=== PATIENT | male | born 1985 | race American Indian/Alaskan Native ===

== ENCOUNTER 2021-01-22 20:27 | Emergency (ER) | payer BC ==
[2021-01-22] MEDS ORDERED: ACETAMINOPHEN 500 MG TAB PO NR (20:58)
[2021-01-22] MEDS ORDERED: SODIUM CHLORIDE 0.9% 1000 ML 1,000 ML IV ONE (20:58)
--- NOTE | 2021-01-22 21:28 | XRay Report ---
CHEST 2 VIEWS INDICATION / CLINICAL INFORMATION: Cough, fever, chills. COMPARISON: None available. FINDINGS: SUPPORT DEVICES: None. HEART / MEDIASTINUM: No significant abnormality. LUNGS / PLEURA: No significant pulmonary or pleural abnormality. No pneumothorax. ADDITIONAL FINDINGS: No significant additional findings. IMPRESSION: 1. No acute findings. Signer Name: Keyur Bourne DO Signed: 01/22/2021 9:24 PM Workstation Name: [id number]
[2021-01-22 21:39] LABS: Hematocrit 49.9 % (35.5-45.6); Hemoglobin 16.2 gm/dl (11.8-15.2); Mean Corpuscular HGB Conc 32 % (32-34); Mean Corpuscular Volume 86 fl (84-94); Platelet Count 187 K/mm3 (140-440); Red Blood Count 5.82 M/mm3 (3.65-5.03); Red Cell Distribution Width 13.6 % (13.2-15.2)
[2021-01-22 22:01] LABS: Alanine Aminotransferase 34 units/L (7-56); Albumin 4.6 g/dL (3.9-5); BUN/Creatinine Ratio 6; Blood Urea Nitrogen 8 mg/dL (9-20); Calcium 9.3 mg/dL (8.4-10.2); Hemolysis Index 13
--- NOTE | 2021-01-22 22:18 | Emergency Department Report ---
- General Chief Complaint: Fever Stated Complaint: NOT EATING Source: patient Mode of arrival: Ambulatory Limitations: No Limitations - History of Present Illness Initial Comments: Patient is a 35-year-old -[place] male with no past medical history who presents to the ED with complaint of acute onset persistent nasal and sinus congestion, diffuse body aches and pains, subjective fever and chills, persistent dry cough, lack of appetite, loss of sense of smell and taste, diarrhea and body aches and pains for the last 4 days. Patient states that other people at his workplace tested positive for COVID-19 viral infection. Patient however states that he has not been vaccinated against COVID-19 viral infection. Patient denies dizziness, syncope, chest pain, shortness of breath, nausea, vomiting, abdominal pain, sore throat, change in vision, testicular pain or hematuria and lightheadedness. MD Complaint: cough, rhinorrhea, nasal congestion, sinus pain, other (Diffuse body aches and pains, diarrhea and generalized weakness) -: Sudden, days(s) (4) Severity: moderate Severity scale (0 -10): 5 Quality: sharp, aching Consistency: constant Improves With: nothing Worsens With: nothing Context: sick contacts Associated Symptoms: fever, chills, myalgias, headache, rhinorrhea, nasal congestion, cough, diarrhea, other (Loss of taste and smell sensation). denies: stiff neck, chest pain, shortness of breath, abdominal pain, nausea, vomiting, dysuria, rash, confusion, weight loss, epistaxis, hoarseness Treatments Prior to Arrival: "cold medicine" - Related Data Previous Rx's Medication Instructions Recorded Last Taken Type Acetaminophen [Tylenol] 500 mg PO Q6HR PRN #30 tablet 01/22/21 Unknown Rx Ascorbic Acid [Vitamin C] 1,000 mg PO Q12H #30 tablet 01/22/21 Unknown Rx Benzonatate [Tessalon Perles] 100 mg PO Q8HR #30 capsule 01/22/21 Unknown Rx Cetirizine HCl [Zyrtec 10mg tab] 10 mg PO DAILY #30 tablet 01/22/21 Unknown Rx Allergies Allergy/AdvReac Type Severity Reaction Status Date / Time No Known Allergies Allergy Verified 01/22/21 21:58 ED Review of Systems ROS: Stated complaint: NOT EATING Other details as noted in HPI Constitutional: chills, fever, malaise Eyes: denies: eye pain, eye discharge, vision change ENT: congestion Respiratory: cough. denies: shortness of breath, SOB with exertion, SOB at rest, stridor, wheezing Cardiovascular: denies: chest pain, palpitations Endocrine: no symptoms reported Gastrointestinal: nausea, diarrhea Genitourinary: denies: urgency, dysuria, frequency, hematuria, discharge Musculoskeletal: arthralgia, myalgia. denies: as per HPI Skin: denies: rash, lesions Neurological: headache Psychiatric: denies: anxiety, depression Hematological/Lymphatic: denies: easy bleeding, easy bruising ED Past Medical Hx - Past Medical History Previous Medical History?: No - Surgical History Past Surgical History?: Yes Additional Surgical History: L arm - Medications Home Medications: Home Medications Medication Instructions Recorded Confirmed Last Taken Type Acetaminophen [Tylenol] 500 mg PO Q6HR PRN #30 tablet 01/22/21 Unknown Rx Ascorbic Acid [Vitamin C] 1,000 mg PO Q12H #30 tablet 01/22/21 Unknown Rx Benzonatate [Tessalon Perles] 100 mg PO Q8HR #30 capsule 01/22/21 Unknown Rx Cetirizine HCl [Zyrtec 10mg tab] 10 mg PO DAILY #30 tablet 01/22/21 Unknown Rx ED Physical Exam - General Limitations: No Limitations General appearance: alert, in no apparent distress - Head Head exam: Present: atraumatic, normocephalic, normal inspection - Eye Eye exam: Present: normal appearance, PERRL, EOMI Pupils: Present: normal accommodation - ENT ENT exam: Present: normal orophraynx, mucous membranes moist, TM's normal bilaterally, normal external ear exam, other (Grossly congested nasal passages) - Neck Neck exam: Present: normal inspection, full ROM - Respiratory Respiratory exam: Present: normal lung sounds bilaterally. Absent: respiratory distress, wheezes, rales, chest wall tenderness, accessory muscle use, decreased breath sounds - Cardiovascular Cardiovascular Exam: Present: regular rate, normal rhythm, normal heart sounds. Absent: systolic murmur, diastolic murmur, rubs, gallop - GI/Abdominal GI/Abdominal exam: Present: soft, normal bowel sounds. Absent: tenderness, guarding, rebound, hyperactive bowel sounds, hypoactive bowel sounds, organomegaly - Extremities Exam Extremities exam: Present: normal inspection, full ROM, normal capillary refill - Back Exam Back exam: Present: normal inspection, full ROM. Absent: tenderness, CVA tenderness (R), CVA tenderness (L), muscle spasm, paraspinal tenderness - Neurological Exam Neurological exam: Present: alert, oriented X3, CN II-XII intact, normal gait, reflexes normal - Psychiatric Psychiatric exam: Present: normal affect, normal mood - Skin Skin exam: Present: warm, dry, intact, normal color. Absent: rash ED Course Vital Signs 01/22/21 20:38 Temperature 99.7 F H Pulse Rate 63 Respiratory 22 Rate Blood Pressure 157/108 [Right] O2 Sat by Pulse 96 Oximetry ED Medical Decision Making - Lab Data Result diagrams: 01/22/21 21:27 01/22/21 21:27 - Radiology Data Radiology results: report reviewed, image reviewed [address] [address] XRay Report Signed Patient: KEENAN MORTENSEN MR#: [id number] : 1985 Acct:[id number] Age/Sex: 35 / M ADM Date: 01/22/21 Loc: ED Attending Dr: Ordering Physician: HEATHER BOTELLO Date of Service: 01/22/21 Procedure(s): XR chest routine 2V Accession Number(s): [id number] cc: HEATHER BOTELLO Fluoro Time In Minutes: CHEST 2 VIEWS INDICATION / CLINICAL INFORMATION: Cough, fever, chills. COMPARISON: None available. FINDINGS: SUPPORT DEVICES: None. HEART / MEDIASTINUM: No significant abnormality. LUNGS / PLEURA: No significant pulmonary or pleural abnormality. No pneumothorax. ADDITIONAL FINDINGS: No significant additional findings. IMPRESSION: 1. No acute findings. Signer Name: Keyur Bourne DO Signed: 01/22/2021 9:24 PM Workstation Name: [id number] Transcribed By: [place] Dictated By: KEYUR BOURNE DO Electronically Authenticated By: KEYUR BOURNE DO Signed Date/Time: 01/22/212123 DD/ 22 TD/TT: - Medical Decision Making This is a 35-year-old -[place] male with no past medical history who presents to the ED with complaint of acute onset persistent nasal and sinus congestion, diffuse body aches and pains, subjective fever and chills, persistent dry cough, lack of appetite, loss of sense of smell and taste, diarrhea and body aches and pains for the last 4 days. Patient states that other people at his workplace tested positive for COVID-19 viral infection. Patient however states that he has not been vaccinated against COVID-19 viral infection. In the ED, patient is alert and oriented x3 and is not in any distress. Patient treated for pain in the ED with Tylenol. Chest x-ray showed no acute cardiopulmonary abnormalities or pneumonitis. Lab test results were reviewed and are all nonactionable. Patient symptoms are likely viral in etiology any COVID-19 viral infection is high in the differential diagnosis. Patient was discharged home on medications and advised to obtain COVID-19 diagnostic test in the outpatient facilities and if positive to self quarantine at home for 10 days. Patient was otherwise advised to follow-up with his primary care physician in 7 to 10 days for reevaluation or return to the ED immediately if symptoms get worse. - Differential Diagnosis URI; Bronchitis; Pneumonia, Covid -19 Critical care attestation.: If time is entered above; I have spent that time in minutes in the direct care of this critically ill patient, excluding procedure time. ED Disposition Clinical Impression: Flu-like symptoms, Acute upper respiratory infection, Suspected severe acute respiratory syndrome coronavirus 2 (SARS-CoV-2) infection Disposition: 01 HOME / SELF CARE / HOMELESS Is pt being admited?: No Does the pt Need Aspirin: No Condition: Stable Instructions: Upper Respiratory Infection, Adult, [id number], Cough, Adult, [id number] Additional Instructions: All lab test results were reviewed and are all nonactionable. Chest x-ray shows no acute cardiopulmonary abnormalities or pneumonitis. Therefore your symptoms are still likely viral and COVID-19 is highly suspected. Therefore get a COVID-19 diagnosis test performed in any of the outside facilities and if positive self quarantine for 10 days while taking medications for pain and fever. Otherwise follow-up with your primary care physician in 7 to 10 days for reevaluation or return to the ED immediately if your symptoms get worse. Prescriptions: Acetaminophen [Tylenol] 500 mg PO Q6HR PRN #30 tablet PRN Reason: pain or fever Benzonatate [Tessalon Perles] 100 mg PO Q8HR #30 capsule Ascorbic Acid [Vitamin C] 1,000 mg PO Q12H #30 tablet Cetirizine HCl [Zyrtec 10mg tab] 10 mg PO DAILY #30 tablet Referrals: [facility] [Provider Group] - 3-5 Days Time of Disposition: 22:23 Print Language: PASHTO
[2021-01-22 23:09] LABS: Total Cells Counted 100
[2021-01-22 23:10] LABS: Band Neutrophils # (Manual) 0.7 K/mm3; Myelocytes # (Manual) 0.1 K/mm3; Platelet Estimate Consistent w Auto; RBC Morphology Normal
[2021-01-22 23:35] VITALS: BP 133/88
== END 2021-01-22 23:28 | disposition home or self-care (01) ==
LOC: ED 20:27
DX: J06.9 Acute upper respiratory infection, unspecified (principal); Z20.822 Contact with and (suspected) exposure to COVID-19
CPT/HCPCS: 71046; 80053; 85025; 99283; J7030

== ENCOUNTER 2021-05-16 17:35 | Emergency (ER) | payer BC ==
[2021-05-16] MEDS ORDERED: KETOROLAC 10 MG TAB PO ONE (20:10)
[2021-05-16] MEDS ORDERED: CYCLOBENZAPRINE 10 MG TAB PO ONE (20:11)
--- NOTE | 2021-05-16 20:29 | Emergency Department Report ---
ED Neck Pain/Injury HPI - General Chief Complaint: Shoulder Injury Stated Complaint: NECK/RT SHOULDER PAIN Time Seen by Provider: 05/16/21 20:23 Mode of arrival: Ambulatory Limitations: No Limitations - History of Present Illness Initial Comments: 36-year-old black male presents to the emergency department for evaluation of 4- day history of right neck and shoulder pain. 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 He states that on he first noticed pain while working and has gotten progressively worse since then. He states that he has taken Tylenol for the pain with only minimal improvement. He states that he has been unable to turn his neck. He denies fever, nausea, vomiting, vision changes, headache. MD Complaint: neck pain -: Gradual, days(s) (For) Place: work Radiation: right lateral, right shoulder Severity: severe Severity scale (0 -10): 9 Quality: aching Consistency: constant Worsens With: movement of neck Associated Symptoms: denies: headache, fever, numbness, tingling, weakness, vertigo, difficulty walking, swollen glands, difficulty swallowing, nausea, vomiting Treatments Prior to Arrival: Acetaminophen - Related Data Previous Rx's Medication Instructions Recorded Last Taken Type Acetaminophen [Tylenol] 500 mg PO Q6HR PRN #30 tablet 01/22/21 Unknown Rx Ascorbic Acid [Vitamin C] 1,000 mg PO Q12H #30 tablet 01/22/21 Unknown Rx Benzonatate [Tessalon Perles] 100 mg PO Q8HR #30 capsule 01/22/21 Unknown Rx Cetirizine HCl [Zyrtec 10mg tab] 10 mg PO DAILY #30 tablet 01/22/21 Unknown Rx Cyclobenzaprine [Flexeril] 10 mg PO TID PRN #21 tab 05/16/21 Unknown Rx Naproxen Sodium [Naproxen Sodium 550 mg PO BID #14 tab 05/16/21 Unknown Rx 550mg] Allergies Allergy/AdvReac Type Severity Reaction Status Date / Time No Known Allergies Allergy Verified 01/22/21 21:58 ED Review of Systems ROS: Stated complaint: NECK/RT SHOULDER PAIN Other details as noted in HPI Comment: All other systems reviewed and negative Constitutional: denies: chills, fever Eyes: denies: eye pain ENT: denies: ear pain Respiratory: denies: cough Cardiovascular: denies: chest pain, palpitations, dyspnea on exertion Endocrine: no symptoms reported Gastrointestinal: denies: abdominal pain, nausea, vomiting Genitourinary: denies: urgency, dysuria Skin: denies: rash, lesions Neurological: denies: headache, weakness, numbness, paresthesias, abnormal gait, vertigo Psychiatric: denies: anxiety Hematological/Lymphatic: denies: easy bleeding, easy bruising ED Past Medical Hx - Surgical History Additional Surgical History: L arm - Medications Home Medications: Home Medications Medication Instructions Recorded Confirmed Last Taken Type Acetaminophen [Tylenol] 500 mg PO Q6HR PRN #30 tablet 01/22/21 Unknown Rx Ascorbic Acid [Vitamin C] 1,000 mg PO Q12H #30 tablet 01/22/21 Unknown Rx Benzonatate [Tessalon Perles] 100 mg PO Q8HR #30 capsule 01/22/21 Unknown Rx Cetirizine HCl [Zyrtec 10mg tab] 10 mg PO DAILY #30 tablet 01/22/21 Unknown Rx Cyclobenzaprine [Flexeril] 10 mg PO TID PRN #21 tab 05/16/21 Unknown Rx Naproxen Sodium [Naproxen Sodium 550 mg PO BID #14 tab 05/16/21 Unknown Rx 550mg] ED Physical Exam - General Limitations: No Limitations General appearance: alert, in no apparent distress - Head Head exam: Present: atraumatic, normocephalic - Eye Eye exam: Present: normal appearance. Absent: conjunctival injection - Neck Neck exam: Present: normal inspection, tenderness. Absent: full ROM, lymphadenopathy - Expanded Neck Exam Expanded Neck exam: Present: tenderness (Right side only). Absent: midline deformity, anterior neck swelling, tracheal deviation - Respiratory Respiratory exam: Present: normal lung sounds bilaterally. Absent: respiratory distress - Cardiovascular Cardiovascular Exam: Present: regular rate - GI/Abdominal GI/Abdominal exam: Present: soft, normal bowel sounds. Absent: distended, tenderness, guarding, rebound, rigid - Extremities Exam Extremities exam: Present: normal inspection - Back Exam Back exam: Present: normal inspection. Absent: tenderness, CVA tenderness (R), CVA tenderness (L) - Neurological Exam Neurological exam: Present: alert, oriented X3 - Psychiatric Psychiatric exam: Present: normal affect, normal mood - Skin Skin exam: Present: warm, dry, intact ED Course Vital Signs 05/16/21 05/16/21 18:13 21:20 Temperature 99.0 F Pulse Rate 74 60 Respiratory 18 14 Rate Blood Pressure 115/80 Blood Pressure 132/85 [Right] O2 Sat by Pulse 99 100 Oximetry ED Medical Decision Making - Medical Decision Making 36-year-old black male presents to the emergency department for evaluation of 4- day history of right neck and shoulder pain. 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 He states that on he first noticed pain while working and has gotten progressively worse since then. He states that he has taken Tylenol for the pain with only minimal improvement. He states that he has been unable to turn his neck. He denies fever, nausea, vomiting, vision changes, headache. Symptoms and exam consistent with musculoskeletal neck pain. Patient will be treated with anti-inflammatories and muscle relaxants for the next few days. He was advised to take medications as prescribed and follow-up with primary care provider if no improvement or worsening symptoms. He verbalized understanding of and agreement with plan of care. Critical care attestation.: If time is entered above; I have spent that time in minutes in the direct care of this critically ill patient, excluding procedure time. ED Disposition Clinical Impression: Neck pain on right side Disposition: 01 HOME / SELF CARE / HOMELESS Is pt being admited?: No Does the pt Need Aspirin: No Condition: Stable Instructions: Musculoskeletal Pain Additional Instructions: Take medications as prescribed. Follow-up with primary care provider if no improvement or worsening symptoms. Prescriptions: Cyclobenzaprine [Flexeril] 10 mg PO TID PRN #21 tab PRN Reason: Muscle Spasm Naproxen Sodium [Naproxen Sodium 550mg] 550 mg PO BID #14 tab Referrals: REBECCA GREENE MD [Referring] - 3-5 Days Forms: Work/School Release Form(ED) Time of Disposition: 20:28
[2021-05-16 21:21] VITALS: BP 132/85
== END 2021-05-16 21:23 | disposition home or self-care (01) ==
LOC: ED 17:35
DX: M54.2 Cervicalgia (principal)
CPT/HCPCS: 99282